=== PATIENT | female | born 1990 | race Caucasian/White ===

== ENCOUNTER → 2016-03-16 | Outpatient (CLI) | payer OTHER ==
[~2016-03-16] MED LIST: CHN/1 PO; FLUO10CA23 PO; FLUO20CA20 PO; FLUO20CA37 PO; HYDR-5688 PO; HYDR25CA PO
[2016-03-16 12:10] LABS: HEMATOCRIT 41.5 % (37-47); MEAN CELL VOLUME 95.2 fL (80-100); MEAN CORPUSCULAR HEMOGLOBIN 31.7 pg (25-34); MEAN CORPUSCULAR HGB CONC 33.3 g/dl (32-36); MEAN PLATELET VOLUME 11.2 fL (7.4-10.4); PLATELET COUNT 216 K/uL (130-400); RED BLOOD COUNT 4.36 M/uL (4.2-5.4); WHITE BLOOD COUNT 5.32 K/uL (4.8-10.8)
[2016-03-16 12:21] LABS: ESTIMATED AVERAGE GLUCOSE 114 mg/dl; HA1C FLAG Normal (Normal)
[2016-03-16 12:32] LABS: ALB/GLOB RATIO 1.2 (0.9-2); ALT/SGPT 33 U/L (12-78); AST/SGOT 17 U/L (15-37); BLOOD UREA NITROGEN 12 mg/dl (7-18); BUN/CREATININE RATIO 18.1 (10-20); CALCIUM 8.7 mg/dl (8.5-10.1); CARBON DIOXIDE 21 mmol/L (21-32); CHLORIDE 109 mmol/L (98-107); CREATININE 0.66 mg/dl (0.60-1.20); GLUCOSE 78 mg/dl (70-99); POTASSIUM 3.8 mmol/L (3.5-5.1); SODIUM 142 mmol/L (136-145)
[2016-03-16 12:48] LABS: ALKALINE PHOSPHATASE 40 U/L (45-117)
== END | disposition home or self-care (01) ==
LOC: C.LAB1850 10:25
PROVIDERS: ATTEND Internal Medicine Endocrinology, Diabetes & Metabolism
DX: E16.2 Hypoglycemia, unspecified (principal); M79.1 Myalgia; R63.5 Abnormal weight gain

== ENCOUNTER 2016-07-09 18:07 | Emergency (ER) | payer OTHER ==
[~2016-07-09] VITALS: Ht 165.1 cm; Wt 78.6 kg
[~2016-07-09 18:07] MED LIST changes: -FLUO10CA23 PO; -FLUO20CA37 PO; -HYDR-5688 PO; -HYDR25CA PO
[2016-07-09 18:20] VITALS: TEMP 36.6; Ht 165.1 cm; Wt 78.6 kg
[2016-07-09] MEDS ORDERED: HYDROCODONE/ACETAMOPHEN 5/325MG TAB PO STA (18:33)
[2016-07-09] MEDS ORDERED: FLUO20CA37 PO (18:42)
[2016-07-09] MEDS ORDERED: FLUO10CA23 PO (18:50)
--- NOTE | 2016-07-09 19:00 | DIAGNOSTIC IMAGING REPORT ---
RIGHT FOOT MIN 3 VIEWS ROUTINE CLINICAL HISTORY: Right foot pain, anterior proximal portion metatarsals Right pain COMPARISON: None. DISCUSSION: The bones and joint spaces appear intact. There is no evidence of fracture, dislocation or bony disease. There is no evidence for soft tissue swelling. IMPRESSION: Negative study. Electronically signed by: Ray Hussein M.D. 07/09/2016 6:59 PM Dictated Date/Time: 07/09/2016 6:58 PM
[2016-07-09] MEDS ORDERED: HYDR-5688 PO (19:19)
--- NOTE | 2016-07-09 19:20 | EMERGENCY ROOM VISIT NOTE ---
History First contact with patient: 18:25 Chief Complaint: FOOT PAIN Stated Complaint: RIGHT FOOT PAIN History of Present Illness The patient is a 26 year old female who presents to the Emergency Room via private vehicle with complaints of "pain". The patient states that around 9 PM she was walking to work either on or Saturday, and her left foot dip down into a small little ditch. She notes that she been doing well, and that her right foot began to hurt. She notes that it is painful with weightbearing. She points to the top of the right proximal foot as a location of pain she experienced swelling, and pain to palpation. She also notes pain radiating to the right ankle. She rates the pain as a 5-6/10. She is tried ibuprofen with minimal relief. She notes the pain is dull, and worse with walking. There is minimal numbness/tingling which she believes is secondary to the ice. She denies any calf pain, chest pain, shortness of breath, fevers, chills, chance of , history of blood clots. Review of Systems A complete 6-point Review of Systems was discussed with the patient, with pertinent positives and negatives listed in the History of Present Illness. All remaining Review of Systems questions can be considered negative unless otherwise specified. Past Medical/Surgical History Medical Problems: (1) Finger injury (2) Injury of left knee (3) Knee pain (4) Sprain of knee Sinus surgery Family History Diabetes mellitus FHx: cancer Hypertension Gallbladder disease, seizures Social History Smoking Status: Never Smoker Marital Status: single Occupation Status: unemployed Social History: [facility], feels safe at home, admits to tobacco use, and denies alcohol use. Current/Historical Medications Scheduled Fluoxetine Hcl (Fluoxetine Hcl), 10 MG PO DAILY Scheduled PRN Hydrocodone/Acetaminophen 5MG/325MG ([place] 5MG/325MG), 1 TABLET PO Q6 PRN for Pain Hydroxyzine Pamoate (Vistaril), 25-50 MG PO Q6H PRN for Anxiety Allergies Coded Allergies: Tuberculin (Verified Allergy, Unknown, FORMS A HIVE AND A RASH , 12/21/15) Physical Exam Vital Signs Date Time Temp Pulse Resp B/P Pulse Ox O2 Delivery O2 Flow Rate FiO2 07/09/16 19:31 75 18 122/77 98 Room Air 07/09/16 18:20 36.6 82 16 127/80 94 Room Air Physical Exam VITAL SIGNS - Vital signs and nursing notes were reviewed. Patient is afebrile , normotensive, non-tachycardic and is saturating well on room air 94%. GENERAL -26-year-old female appearing her stated age who is in no acute distress. Communicates well with provider and answers questions appropriately. SKIN - Without rashes. The skin overlying the left foot and right foot is unremarkable. EXTREMITIES - No clubbing or peripheral cyanosis. No pretibial edema present. Patient is neurovascularly intact in the right lower extremity. There is tenderness to palpation overlying the proximal metatarsal joints as well as the midfoot region inferiorly. +5/5 strength noted in UE/LE bilaterally. Medical Decision & Procedures ER Provider Diagnostic Interpretation: RIGHT FOOT MIN 3 VIEWS ROUTINE CLINICAL HISTORY: Right foot pain, anterior proximal portion metatarsals Right pain COMPARISON: None. DISCUSSION: The bones and joint spaces appear intact. There is no evidence of fracture, dislocation or bony disease. There is no evidence for soft tissue swelling. IMPRESSION: Negative study. Medications Administered Medications (Trade) Dose Ordered Sig/Demetri Route Start Time Stop Time Status Last Admin Dose Admin Acetaminophen/ Hydrocodone Bitart ([place] 5/325 Tab) 1 tab NOW STAT PO 07/09/16 18:33 07/09/16 18:34 DC 07/09/16 18:33 1 TAB Medical Decision Patient was seen and evaluated as above. After obtaining a thorough history and physical examination radiographs was obtained of the right foot. She is provided ice packs as well as one [place] tablet for her pain. Radiographs were negative. I suspect the patient likely has either a small undetected occult fracture, or contusion of this region. For this reason, she'll be fitted with a postop shoe followed by crutches. She is to remain nonweightbearing until either pain-free or follows up with orthopedics. It is recommended she call orthopedics first thing tomorrow morning to schedule follow-up. She was provided with the number. She was educated upon today's findings, was educated upon worrisome symptoms which to return, had questions prior to discharge and was discharged home in good condition. In the evaluation and treatment of this patient, the following differential diagnoses were considered: Lisfranc Fracture, Talus Fracture, Tarsal Fracture, Foot Sprain. [place] Drug Monitoring Program Search Results: patient reviewed within database, no issues identified Impression Primary Impression: Foot pain Departure Information Dispostion Home / Self-Care Condition GOOD Prescriptions Hydrocodone/Acetaminophen 5MG/325MG ([place] 5MG/325MG) Tab 1 TABLET PO Q6 Y for Pain, #12 TAB For Initial Treatment Prov: Cameron Valenzuela PA-C 07/09/16 Referrals Leanna Estrada D.O. (PCP) Mahad Howell, DO Patient Instructions [facility] Additional Instructions You have been treated in the Emergency Department for a right foot injury. You have received pain medicine in the emergency department which impairs your ability to operate a vehicle. It is illegal for you to drive after receiving these medicines. You have been prescribed NORCO to be used for pain control. This is a narcotic medication. You cannot drive or consume alcohol while on this medicine. This medicine should only be used for pain that cannot be controlled with over-the- counter pain medicines. For pain control, you can use the following [id number] medicines (if >12 yo): - Regular strength (325mg/tab) Tylenol (acetaminophen) 2 tabs every 4-6 hours as needed. Do not exceed 12 tablets in a 24 hour period. Avoid taking more than 3 grams (3000 mg) of Tylenol per day. This includes any other sources of acetaminophen you may take on a regular basis. Please do not take this while taking the [place]. This medication already contains acetaminophen. - Regular strength (200 mg/tab) Advil (ibuprofen) 1-2 tabs every 4-6 hours as needed. Do not exceed a dose of 3200 mg per day. If this is a recent injury (<24 hrs), ice can be applied to the area of pain for the first 3 days to help decrease pain and inflammation. You have been provided the number for an Orthopaedic Surgeon. You should call this number as soon as possible to establish a follow-up visit from today's Emergency Department visit. Keep the ankle/foot brace/splint in place until cleared by Orthopedics. Use the crutches you have been provided to keep ALL weight off of the ankle until weight bearing is tolerable. Return to the Emergency Department if your current symptoms worsen despite treatment course outlined above, or if you develop any of the following symptoms : intractable pain despite aforementioned treatment course or new onset of numbness or tingling of the foot. Please return to the emergency department with any new/concerning symptoms.
[2016-07-09 19:31] VITALS: BP 122/77; PULSE 75; O2SAT 98
[2016-07-09] MEDS ORDERED: HYDR25CA PO (23:47)
== END 2016-07-09 19:39 | disposition home or self-care (01) ==
LOC: C.EDB 18:09 → C.EDD 19:39
DX: M79.671 Pain in right foot (principal); W17.2XXA Fall into hole, initial encounter; Y92.89 Other specified places as the place of occurrence of the external cause; Z83.3 Family history of diabetes mellitus; Z80.9 Family history of malignant neoplasm, unspecified; Z82.49 Family history of ischemic heart disease and other diseases of the circulatory system; Z83.79 Family history of other diseases of the digestive system